=== PATIENT | female | born 1960 | race Caucasian/White ===

== ENCOUNTER → 2017-10-13 | Outpatient (CLI) | payer OTHER ==
--- NOTE | 2017-10-13 16:35 | CT ---
EXAMINATION TYPE: CT facial bones w con DATE OF EXAM: 10/13/2017 COMPARISON: NONE HISTORY: Right sided facial swelling marked by BB. CT DLP: 764.9 mGycm Automated exposure control for dose reduction was used. CONTRAST: CT scan of the facial bones is performed with IV Contrast, patient injected with 100 mL of Omnipaque 300. TECHNIQUE: CT scan of the sinuses is performed without contrast, axial images are obtained, coronal r eformatted images are also reviewed. FINDINGS: The paranasal sinuses including the frontal, ethmoid, sphenoid, and maxillary sinuses bila terally are well-aerated without abnormal opacification. The ostiomeatal complex is patent bilateral ly on the coronal images. Visualized portion of mastoid air cells show no abnormal opacification. The globes are intact bilate rally. Left-sided clinical concern corresponds to the right parotid gland was which is edematous relative to its left-sided counterpart. I do not see evidence for intraparotid mass. The findings may reflect pa rotid sialoadenitis. 2 mm calculus noted in the region of the right parotid duct. Left-sided parotid gland is unremarkable and free of the edematous change or lesion. Submandibular glands are within normal limits. No evidence for adenopathy greater than 1 cm. IMPRESSION: 1. Right-sided parotid sialoadenitis possibly related to 2 mm calculus in the region of the right par otid duct. Correlate clinically.
== END | disposition home or self-care (01) ==
LOC: RADCTMAIN 15:58
PROVIDERS: ATTEND Family Medicine
DX: K11.20 Sialoadenitis, unspecified (principal)
CPT/HCPCS: 70487; Q9967

== ENCOUNTER → 2018-07-31 | Outpatient (CLI) | payer OTHER ==
--- NOTE | 2018-07-31 20:42 | MR ---
MRI CERVICAL SPINE: CLINICAL HISTORY: Cervical neuritis per order. Neck pain for 4 to 5 years causing pain or weakness in both arms and fingers per patient. TECHNIQUE: Multiplanar, multisequence imaging of the cervical spine is performed without IV contrast. COMPARISON: MRI cervical spine June 10, 2016. FINDINGS: Sagittal images of the cervical spine show the craniocervical junction to remain within nor mal limits. The cervical and upper thoracic spinal cord remains normal in course, caliber, and signa l. Vertebral alignment is stable and anatomic. The vertebral body heights remain normal. Mild disc space narrowing with small posterior disc herniation at C3-C4 level is redemonstrated on sagittal im ages. Heterogeneity of bone marrow signal intensity is redemonstrated. No significant spurring or lucia ma is seen. Axial images show the C2-C3 level to remain within normal limits. Axial images at C3-C4 level redemonstrates broad based posterior disc protrusion mildly facing anteri or thecal sac, bilateral neural foramina are patent. No significant change from prior. Axial images at C4-C5 level are felt to remain within normal limits. Axial images at C5-C6 level show tiny central disc protrusion minimally effacing anterior thecal sac, bilateral neural foramina are patent. No significant change from prior. Axial images at C6-C7 level shows similar tiny broad-based central disc protrusion minimally effacing anterior thecal sac, bilateral neural foramina are patent. Axial images at C7-T1 level are felt within normal limits. There is 1.3 cm right thyroid nodule identified axial image 7 appears more prominent from prior MRI. IMPRESSION: Stable multilevel degenerative changes with largest disc herniation C3-C4 level redemonst rated. Increasing size greater than 1 cm right thyroid nodule noted. Thyroid ultrasound is advised to further evaluate and characterize.
== END | disposition home or self-care (01) ==
LOC: RADMRIMAIN 19:32
PROVIDERS: ATTEND Family Medicine
DX: M50.11 Cervical disc disorder with radiculopathy, high cervical region (principal); M47.22 Other spondylosis with radiculopathy, cervical region
CPT/HCPCS: 72141

== ENCOUNTER → 2018-08-10 | Outpatient (CLI) | payer OTHER ==
--- NOTE | 2018-08-10 18:38 | MR ---
EXAMINATION TYPE: MR shoulder RT wo con DATE OF EXAM: 08/10/2018 COMPARISON: None HISTORY: Rt shoulder pain x several years TECHNIQUE: Multiplanar, multisequence imaging of the right shoulder is performed without contrast. FINDINGS: Rotator Cuff: There is thinning and irregularity of the distal margin of the insertion of the anterio r fibers of the supraspinatus tendon compatible tendinosis and partial intrasubstance tear. No throug h thickness tear or retraction remaining tendons are intact. Acromioclavicular Joint: Mild hypertrophic change of the AC joint does result in some mass effect and impingement upon the supraspinatus tendon and muscle. Glenohumeral Joint: Joint spaces preserved. No sizable joint effusion. Glenohumeral ligaments intact. Labrum: The labrum appears grossly intact given limitation of non-arthrogram study. Biceps Tendon: The long head of biceps is in normal location within bicipital groove. Bone marrow signal: Abnormal signal in compatible cystic changes involving the femoral head likely re active chronic impingement. Other: Shotty adenopathy involving the axilla noted. IMPRESSION: Findings are compatible tendinosis and partial intrasubstance tear involving the anterior fibers of t he insertion of the supraspinatus tendon with no evidence of through thickness tear or retraction.
--- NOTE | 2018-08-11 09:51 | US ---
EXAMINATION TYPE: US thyroid st tissue head/neck DATE OF EXAM: 08/10/2018 COMPARISON: MRI 07/31/2018 CLINICAL HISTORY: E04.1 Thyroid nodule. GLAND SIZE: Right Lobe: 4.6 x 1.7 x 1.6 cm Overall Parenchyma: homogenous Left Lobe: 4.0 x 1.7 x 1.5 cm Overall Parenchyma: homogeneous Isthmus Thickness: 0.2 cm NODULES RIGHT: # of nodules measured on right: 1 1. 1.4 X 1.2 x 1.2 cm hypoechoic solid nodule at the mid pole with well-defined margins. This nodu le is wider than tall and shows intranodular vascularity. no prior LEFT: # of nodules measured on left: 1 1. 0.6 X 0.4 x 0.5 cm hypoechoic solid nodule at the lower pole with well-defined margins . This n odule is wider than tall and shows no intranodular vascularity. no prior ISTHMUS: # of nodules measured in the isthmus: 0 Bilateral neck scanned, no evidence of lymphadenopathy. IMPRESSION: Bilateral thyroid nodules, dominant nodule within the right lobe of the gland would be amenable to fi ne-needle aspiration should it be requested.
== END | disposition home or self-care (01) ==
LOC: RADUSWWP 16:49
PROVIDERS: ATTEND Family Medicine
DX: E04.2 Nontoxic multinodular goiter (principal); M75.81 Other shoulder lesions, right shoulder; M75.111 Incomplete rotator cuff tear or rupture of right shoulder, not specified as traumatic
CPT/HCPCS: 76536

== ENCOUNTER 2018-09-17 09:19 | Day surgery (SDC) | payer OTHER ==
[2018-09-17 09:45] VITALS: TEMP 98.1
[2018-09-17 10:26] VITALS: BP 105/78; PULSE 89; RESP 16
--- NOTE | 2018-09-17 14:31 | US ---
EXAMINATION TYPE: US FNA thyroid DATE OF EXAM: 09/17/2018 COMPARISON: Ultrasound 08/10/2018 HISTORY: Thyroid nodule, E04.1 Maximal barrier technique was utilized. Ultrasound using sterile technique. The skin overlying the no dule was localized with ultrasound and the overlying skin prepped and draped. Lidocaine used for loca l anesthesia. 5 passes with a 25-gauge needle were made into the right thyroid nodule under ultrasoun d guidance. Aspirate specimen submitted to cytology. Following the procedure hemostasis achieved. No immediate complication IMPRESSION: Status post ultrasound-guided fine-needle aspiration of thyroid nodule, pathology pending .
== END 2018-09-17 10:45 | disposition home or self-care (01) ==
LOC: RADPROMAIN 09:19
PROVIDERS: ATTEND Family Medicine
DX: E04.1 Nontoxic single thyroid nodule (principal)
CPT/HCPCS: 10022; 76942; 88173; 88305

== ENCOUNTER → 2019-09-21 | Outpatient (CLI) | payer OTHER ==
--- NOTE | 2019-09-21 15:56 | XR ---
EXAMINATION TYPE: XR chest 2V DATE OF EXAM: 09/21/2019 COMPARISON: 12/26/2015 HISTORY: Dyspnea TECHNIQUE: Frontal and lateral views of the chest are obtained. FINDINGS: There is no focal air space opacity, pleural effusion, or pneumothorax seen. Chronic inte rstitial prominence. The cardiac silhouette size is within normal limits. The osseous structures ar e intact. Mild diffuse osseous demineralization. IMPRESSION: Chronic findings with no acute cardiopulmonary process.
--- NOTE | 2019-09-21 15:57 | XR ---
EXAMINATION TYPE: XR pelvis AP view DATE OF EXAM: 09/21/2019 CLINICAL HISTORY: Pelvic pain TECHNIQUE: A single AP view of the pelvis is obtained. COMPARISON: None. FINDINGS: There is no acute fracture/dislocation evident in the pelvis. The hip and sacroiliac join ts appear symmetric with mild bilateral acetabular roof sclerosis. Colonic fecal stasis is seen in th e right hemicolon as visualized. The overlying soft tissue appears unremarkable. IMPRESSION: There is no acute fracture or dislocation in the pelvis. Mild bilateral femoral acetabul ar arthropathy. Colonic fecal stasis is partially visualized in the cecum and ascending colon.
--- NOTE | 2019-09-21 16:00 | XR ---
EXAMINATION TYPE: XR ankle complete bilateral, XR foot complete bilateral DATE OF EXAM: 09/21/2019 CLINICAL HISTORY: Rheumatoid arthritis. Bilateral feet and ankle pain. TECHNIQUE: Frontal, lateral and oblique images of the bilateral ankles and feet are obtained. COMPARISON: None. FINDINGS: There is no acute fracture/dislocation evident in either foot or ankle. The bilateral ank le mortises appear within normal limits. The overlying soft tissue appears unremarkable. Small plant ar and Achilles heel spurs are seen on the right with small plantar heel spur on the left. There is n o acute fracture or dislocation evident either foot. The joint spaces in the bilateral feet are pres erved. Very mild degenerative changes of the distal interphalangeal joints with osseous perforation b ilaterally. Old healed fracture deformity of the proximal diaphysis of the left second and third meta tarsals, possibly from prior stress fractures. Overlying soft tissue is unremarkable. IMPRESSION: There is no acute fracture or dislocation in the either foot nor ankle. Very mild degene rative changes of the distal interphalangeal joints and heel spurs as described above.
--- NOTE | 2019-09-21 16:03 | XR ---
EXAMINATION TYPE: XR knee limited bilateral DATE OF EXAM: 09/21/2019 CLINICAL HISTORY: Rheumatoid arthritis and bilateral knee pain. TECHNIQUE: 2 views of the bilateral knees were obtained. COMPARISON: None. FINDINGS: There is no acute fracture/dislocation evident in either knee. The tri-compartment joint spaces appear within normal limits. Small patellar osteophytes are seen bilaterally. The overlying s oft tissue appears unremarkable. IMPRESSION: There is no acute fracture or dislocation in either knee. Mild patellofemoral compartmen t arthropathy bilaterally.
--- NOTE | 2019-09-22 09:59 | XR ---
EXAMINATION TYPE: XR hand complete bilateral, XR wrist complete BILATERAL DATE OF EXAM: 09/21/2019 CLINICAL HISTORY: Rheumatoid arthritis with bilateral hand pain. TECHNIQUE: Frontal, lateral and oblique images of the bilateral hands were obtained. 4 views of the bilateral wrists were also obtained. COMPARISON: None. FINDINGS: There is no acute fracture/dislocation evident in either hand. The joint spaces in the bot h and appear aligned. Very minimal degenerative change of the first carpometacarpal joint on the left with bony proliferative change. Mild osseous demineralization. No erosions. No erosion of the ulnar styloid of either hand. The overlying soft tissue appears unremarkable. On the right there is also mild narrowing of the first carpometacarpal joint and bony proliferative c hange. Carpal carpal interspaces are maintained. No acute fracture of the right wrist. No acute fract ure of the right hand is seen. IMPRESSION: There is no acute fracture or dislocation in either hand nor wrist. Very mild arthropath y of the first carpometacarpal joints of both wrists.
== END | disposition home or self-care (01) ==
LOC: RADXRMAIN 15:07
PROVIDERS: ATTEND Physician Assistant
DX: R09.89 Other specified symptoms and signs involving the circulatory and respiratory systems (principal); M16.0 Bilateral primary osteoarthritis of hip; M19.072 Primary osteoarthritis, left ankle and foot; M19.071 Primary osteoarthritis, right ankle and foot; M54.5 Low back pain; M25.561 Pain in right knee; M25.562 Pain in left knee; R76.0 Raised antibody titer
CPT/HCPCS: 71046; 72170

== ENCOUNTER → 2020-10-16 | Outpatient (CLI) | payer OTHER ==
--- NOTE | 2020-10-16 21:22 | XR ---
EXAMINATION TYPE: XR bone survey complete DATE OF EXAM: 10/16/2020 COMPARISON: None HISTORY: Multiple myeloma TECHNIQUE: Multiple sequences through the axial and appendicular skeleton FINDINGS: Chest x-ray: Heart size is normal. Pulmonary vasculature is normal. No suspicious lytic or sclerotic lesions are evident. Lung caraballo are clear. Cervical spine: Cervical spine is examined in 2 projections. No lytic or sclerotic lesions are eviden t. Prevertebral space is normal. Some degenerative disc changes present C3-4. Anterior vertebral body spurring is at C3. Humeri: Images are somewhat underpenetrated. Suspicious lytic areas are not evident. Skull: Skull is examined in 2 projections. No suspicious lytic or sclerotic lesions. Thoracic spine: Vertebral bodies are normal. Disc heights are preserved. No lytic areas are evident Lumbar spine: There 5 lumbar-type vertebral bodies. Pedicles intact. Vertebral body heights are prese rved. Femurs: Femoral heads articulate with the acetabulum. No suspicious lytic areas are evident. Mild ileana nt space narrowing is present at the hips and knees. Her graft pelvis: Sacroiliac joints and symphysi s pubis are normal. The iliac wings appear normal. IMPRESSION: 1. Suspicious lytic areas are not typical for multiple myeloma are not radiographically evident
== END | disposition home or self-care (01) ==
LOC: RADXRMAIN 12:23
PROVIDERS: ATTEND Internal Medicine Hematology & Oncology
DX: D47.2 Monoclonal gammopathy (principal); D64.9 Anemia, unspecified; J44.9 Chronic obstructive pulmonary disease, unspecified; R06.2 Wheezing; C90.00 Multiple myeloma not having achieved remission; M50.31 Other cervical disc degeneration, high cervical region
CPT/HCPCS: 77075

== ENCOUNTER 2022-09-10 08:31 | Day surgery (SDC) | payer MEDICARE ==
[2022-09-09 11:53] VITALS: BMI 29.0
[~2022-09-10 08:31] MED LIST: LACTATED RINGERS 1,000 ML IV SCH
[2022-09-10 08:50] VITALS: TEMP 97.9
[2022-09-10] MEDS ORDERED: LIDOCAINE 2% INJ 20 MG/ML (2 ML VIAL) ONE (09:34)
[2022-09-10] MEDS ORDERED: PROPOFOL 10 MG/ML 20 ML VIAL IV ONE (09:34)
--- NOTE | 2022-09-10 09:50 | P.PCN ---
Date of Procedure: 09/10/22 Procedure(s) Performed: BRIEF HISTORY: Patient is a 62-year-old pleasant white female scheduled for an elective colonoscopy as a part of intermittent rectal bleeding for the last 6 months duration. PROCEDURE PERFORMED: Colonoscopy. PREOPERATIVE DIAGNOSIS: Intermittent rectal bleeding. IV sedation per Anesthesia. PROCEDURE: After informed consent was obtained, the patient, was brought into the endoscopy unit. IV sedation was administered by Anesthesia under continuous monitoring. Digital rectal examination was normal. Initially the Olympus CF-160 flexible video colonoscope was then inserted in the rectum, gradually advanced into the cecum without any difficulty. Careful examination was performed as the scope was gradually being withdrawn. Ileocecal valve and the appendiceal orifice were visualized and appeared normal. Prep was excellent. Mucosa of the cecum, ascending colon, transverse colon, descending colon, sigmoid colon, and rectum appeared normal. Scattered sigmoid diverticulosis Retroflexion was performed in the rectum and small internal hemorrhoids were seen. The patient tolerated the procedure well. IMPRESSION: Normal-appearing colon from rectum to cecum no evidence of colorectal neoplasia Small internal hemorrhoids Scattered sigmoid diverticulosis. RECOMMENDATIONS: Findings of this examination were discussed with the patient is well as her family. She was advised to be a high-fiber diet and take fiber supplements a regular basis. Recommend repeat colonoscopy in 10 years..
[2022-09-10 09:59] VITALS: RESP 16
[2022-09-10 10:18] VITALS: BP 126/73; PULSE 74
== END 2022-09-10 10:31 | disposition home or self-care (01) ==
LOC: ORWHC2ENDO 08:31
PROVIDERS: ATTEND Internal Medicine Gastroenterology
DX: K62.5 Hemorrhage of anus and rectum (principal); K57.30 Diverticulosis of large intestine without perforation or abscess without bleeding; K64.8 Other hemorrhoids
CPT/HCPCS: 45378; J2704; J2001

== ENCOUNTER → 2023-05-15 | Outpatient (CLI) | payer MEDICARE ==
--- NOTE | 2023-05-15 16:26 | CT ---
EXAMINATION TYPE: CT chest wo con DATE OF EXAM: 05/15/2023 COMPARISON: 12/26/2015 HISTORY: Left side rib pain. CT DLP: Combined DLP of 325.[address] of the chest was performed with lung and mediastinal window settings submitted. The la ck of contrast limits evaluation of the vascular, mediastinal and parenchymal structures including th e upper abdomen. LUNGS: The lungs are clear and free of infiltrate. There is basilar dependent atelectasis. No pulmona ry nodule or mass is detected. No pleural effusion. No CT evidence of interstitial lung disease. MEDIASTINUM/ANGELA: Thoracic aorta is of normal caliber with limited evaluation given lack of contrast . Mild cardiomegaly and coronary artery calcifications. Paraesophageal hiatal hernia small to moderat e in size. No evidence for mediastinal mass. No lymph nodes greater than 1cm. UPPER ABDOMEN: No significant abnormality is seen. OTHER: There appears to be partial resection of left rib #7 posteriorly. Correlate with surgical hist ory. I do not see evidence for acute displaced fracture or bony rib lesion. IMPRESSION: 1. Paraesophageal hiatal hernia small to moderate in size. 2.There appears to be partial resection of left rib #7 posteriorly. Correlate with surgical history. I do not see evidence for acute displaced fracture or bony rib lesion.
--- NOTE | 2023-05-15 16:33 | CT ---
EXAMINATION TYPE: CT thoracic spine wo con DATE OF EXAM: 05/15/2023 COMPARISON: HISTORY: Left side rib pain. CT DLP: Combined DLP of 325.2 mGycm Automated exposure control for dose reduction was used. Unenhanced CT of the thoracic spine was perfo rmed. FINDINGS: No fracture or malalignment seen. Disc spaces are well preserved. No paraspinal mass or bony destruct david process. No malalignment. There appears to be resection of a portion of left rib #7 posteriorly. IMPRESSION: NO SIGNIFICANT ABNORMALITY OF THE THORACIC SPINE.
== END | disposition home or self-care (01) ==
LOC: RADCTMAIN 15:33
PROVIDERS: ATTEND Family Medicine
DX: S29.9XXA Unspecified injury of thorax, initial encounter (principal); K44.9 Diaphragmatic hernia without obstruction or gangrene
CPT/HCPCS: 71250; 72128

== ENCOUNTER → 2023-06-20 | Outpatient (CLI) | payer MEDICARE ==
--- NOTE | 2023-06-20 11:30 | NM ---
EXAMINATION TYPE: NM hepatobiliary w EF DATE OF EXAM: 06/20/2023 COMPARISON: NONE CLINICAL INDICATION: Female, 63 years old with history of R10.84 Generalized abd pain; TECHNIQUE: After the intravenous administration of 4.98 mCi Tc 99m Mebrofenin hepatobiliary scintigra phy is performed. Immediate images post injection. FINDINGS: There is satisfactory initial accumulation of tracer by the liver. The gallbladder is visualized wit hin 8 minutes. The small bowel activity is noted within 60 minutes. At one hour 8 ounces of oral en sure plus is given to mimic CCK and gallbladder ejection fraction is calculated at 66 %, in the luis l range. Therefore there is no scintigraphic evidence of cystic or common bile duct obstruction to s uggest acute cholecystitis or gallbladder dyskinesia. IMPRESSION: Exam is within normal limits.
== END | disposition home or self-care (01) ==
LOC: RADNMMAIN 06:56
PROVIDERS: ATTEND Family Medicine
DX: R10.84 Generalized abdominal pain (principal)
CPT/HCPCS: 78226; A9537